=== PATIENT | male | born 1945 | race Caucasian/White ===

== ENCOUNTER 2016-12-08 17:07 | Inpatient (IN) | payer OTHER ==
[~2016-12-08] VITALS: Ht 188 cm; Wt 114.3 kg
[2016-12-08] MEDS ORDERED: LOVA40TA2 PO (17:26)
[2016-12-08] MEDS ORDERED: POLY119P2 PO (17:26)
[2016-12-08] MEDS ORDERED: TEMA30CA5 PO (17:26)
[2016-12-08] MEDS ORDERED: NIFE20CA PO (17:26)
[2016-12-08] MEDS ORDERED: BUTA-249 PO (17:26)
[2016-12-08] MEDS ORDERED: PROP80CA PO (17:26)
[2016-12-08] MEDS ORDERED: ASCO500C16 PO (17:26)
[2016-12-08] MEDS ORDERED: THIA100T13 PO (17:26)
[2016-12-08] MEDS ORDERED: FERR325T28 PO (17:26)
[2016-12-08] MEDS ORDERED: FOLI1TAB16 PO (17:26)
[2016-12-08] MEDS ORDERED: ALPR1TAB2 PO (17:26)
[2016-12-08 18:40] VITALS: BP 137/80
[2016-12-08] MEDS ORDERED: LORAZEPAM 0.5 MG TABLET PO PRN (20:15)
[2016-12-08] MEDS ORDERED: MAGNESIUM HYDROXIDE 30 ML LIQUID UDC PO PRN (20:15)
[2016-12-08] MEDS ORDERED: TEMAZEPAM 7.5 MG CAPSULE PO PRN (20:15)
[2016-12-08] MEDS ORDERED: MAG HYDROX/AL HYDROX/SIMETH 30 ML LIQUID UDC PO PRN (20:15)
[2016-12-08] MEDS: ACETAMINOPHEN 325 MG TABLET PO PRN (22:36)
[2016-12-08] MEDS: LORAZEPAM 1 MG TABLET PO PRN (22:57)
[2016-12-08] MEDS ORDERED: LORAZEPAM 0.5 MG TABLET ONE (23:04)
[2016-12-08] MEDS ORDERED: TEMAZEPAM 7.5 MG CAPSULE ONE (23:04)
[2016-12-09] MEDS: TEMAZEPAM 15 MG CAPSULE PO PRN (00:03)
[2016-12-09] MEDS: LORAZEPAM 1 MG TABLET PO PRN ×3 (05:41→18:24)
[2016-12-09] MEDS ORDERED: LORAZEPAM 1 MG TABLET ONE (05:49)
[2016-12-09 07:30] VITALS: BP 132/85
[2016-12-09 16:49] VITALS: BP 136/84
[2016-12-09 20:15] VITALS: BP 138/95
[2016-12-09] MEDS: DIVALPROEX 250 MG TABLET.DR PO SCH (20:29)
[2016-12-09] MEDS: risperiDONE 0.5 MG TABLET PO SCH (20:29)
[2016-12-10] MEDS: TEMAZEPAM 15 MG CAPSULE PO PRN ×2 (00:19→20:24)
[2016-12-10 07:30] VITALS: BP 122/70
[2016-12-10] MEDS: risperiDONE 0.25 MG TABLET PO SCH (09:11)
[2016-12-10] MEDS: DIVALPROEX 250 MG TABLET.DR PO SCH ×2 (09:11→20:24)
[2016-12-10] MEDS: FLUOXETINE HCL 10 MG CAPSULE PO SCH (09:11)
[2016-12-10] MEDS ORDERED: PROPRANOLOL LA 80 MG CAP.SA.24H PO SCH (10:00)
[2016-12-10] MEDS: ASCORBIC ACID 500 MG TABLET PO SCH (11:49)
[2016-12-10] MEDS: FOLIC ACID 1 MG TABLET PO SCH (11:49)
[2016-12-10] MEDS: FERROUS SULFATE 325 MG TABEC PO SCH ×2 (11:49→17:53)
[2016-12-10] MEDS: ACETAMINOPHEN 325 MG TABLET PO PRN ×2 (11:49→18:17)
[2016-12-10] MEDS: PROPRANOLOL HCL 40 MG TABLET PO SCH ×2 (11:50→20:52)
[2016-12-10] MEDS: POLYETHYLENE GLYCOL 3350 238 GM POWDER PO SCH ×2 (11:52→17:52)
[2016-12-10] MEDS: THIAMINE HCL 100 MG TABLET PO SCH (14:11)
[2016-12-10 16:24] VITALS: BP 144/85
[2016-12-10 20:00] VITALS: BP 137/76
[2016-12-10] MEDS: ATORVASTATIN 40 MG TABLET PO SCH (20:24)
[2016-12-10] MEDS: risperiDONE 0.5 MG TABLET PO SCH (20:24)
[2016-12-10] MEDS: LORAZEPAM 1 MG TABLET PO PRN (22:12)
[2016-12-11] MEDS: ACETAMINOPHEN 325 MG TABLET PO PRN ×3 (00:18→19:56)
[2016-12-11 07:30] VITALS: BP 121/83
[2016-12-11] MEDS: risperiDONE 0.25 MG TABLET PO SCH (08:38)
[2016-12-11] MEDS: ASCORBIC ACID 500 MG TABLET PO SCH (08:38)
[2016-12-11] MEDS: FLUOXETINE HCL 10 MG CAPSULE PO SCH (08:38)
[2016-12-11] MEDS: FOLIC ACID 1 MG TABLET PO SCH (08:38)
[2016-12-11] MEDS: DIVALPROEX 250 MG TABLET.DR PO SCH ×2 (08:38→20:03)
[2016-12-11] MEDS: PROPRANOLOL HCL 40 MG TABLET PO SCH ×2 (08:39→20:03)
[2016-12-11] MEDS: POLYETHYLENE GLYCOL 3350 238 GM POWDER PO SCH ×2 (08:40→17:22)
[2016-12-11] MEDS: FERROUS SULFATE 325 MG TABEC PO SCH ×2 (09:35→17:16)
[2016-12-11] MEDS: THIAMINE HCL 100 MG TABLET PO SCH (13:23)
[2016-12-11 16:00] VITALS: BP 135/85
[2016-12-11 19:43] VITALS: BP 145/95
[2016-12-11] MEDS: ATORVASTATIN 40 MG TABLET PO SCH (20:03)
[2016-12-11] MEDS: risperiDONE 0.5 MG TABLET PO SCH (20:03)
[2016-12-11] MEDS: TEMAZEPAM 15 MG CAPSULE PO PRN (22:11)
[2016-12-12] MEDS: LORAZEPAM 1 MG TABLET PO PRN (01:19)
[2016-12-12 07:30] VITALS: BP 137/92
[2016-12-12] MEDS: FERROUS SULFATE 325 MG TABEC PO SCH (09:13)
[2016-12-12] MEDS: DIVALPROEX 250 MG TABLET.DR PO SCH (09:14)
[2016-12-12] MEDS: risperiDONE 0.25 MG TABLET PO SCH (09:14)
[2016-12-12] MEDS: FLUOXETINE HCL 10 MG CAPSULE PO SCH (09:14)
[2016-12-12] MEDS: FOLIC ACID 1 MG TABLET PO SCH (09:14)
[2016-12-12] MEDS: ASCORBIC ACID 500 MG TABLET PO SCH (09:14)
[2016-12-12 09:15] VITALS: BP 137/92
[2016-12-12] MEDS: PROPRANOLOL HCL 40 MG TABLET PO SCH (09:15)
[2016-12-12] MEDS: POLYETHYLENE GLYCOL 3350 238 GM POWDER PO SCH (09:16)
== END 2016-12-12 11:20 | disposition home or self-care (01) | DRG 885 ==
LOC: ER 17:10 → GPS 18:31
PROVIDERS: ADMIT Psychiatry & Neurology Psychiatry; ATTEND Internal Medicine
DX: F39 Unspecified mood [affective] disorder (principal); F03.91 Unspecified dementia, unspecified severity, with behavioral disturbance; E66.9 Obesity, unspecified; F29 Unspecified psychosis not due to a substance or known physiological condition; I10 Essential (primary) hypertension; E78.5 Hyperlipidemia, unspecified; F41.9 Anxiety disorder, unspecified; Z68.32 Body mass index [BMI] 32.0-32.9, adult; F31.9 Bipolar disorder, unspecified
CPT/HCPCS: 36415; A4663; J3490